=== PATIENT | male | born 1975 | race Asian ===

== ENCOUNTER 2017-12-17 07:25 | Day surgery (SDC) | payer OTHER ==
[~2017-12-17] VITALS: Ht 170.2 cm; Wt 89.8 kg
[2017-12-17 14:29] VITALS: BP_SYST 109
== END 2017-12-17 09:40 | disposition home or self-care (01) ==
LOC: SDS 07:25 → MERGE 08:00 → SDS 09:40
PROVIDERS: ATTEND Surgery
DX: K60.5 Anorectal fistula (principal); K60.2 Anal fissure, unspecified; J45.909 Unspecified asthma, uncomplicated; E03.9 Hypothyroidism, unspecified
CPT/HCPCS: 45331; 88305; J2250; J3010

== ENCOUNTER 2018-03-12 11:10 | Day surgery (SDC) | payer OTHER ==
[~2018-03-12] VITALS: Ht 170.2 cm; Wt 91.2 kg
[~2018-03-12 11:10] MED LIST: CEFAZOLIN SOD 1 GM in D5W 50 ML IV ONE
[2018-03-12] MEDS ORDERED: ONDANSETRON HCL 4 MG/2 ML VIAL IVP PRN (13:30)
[2018-03-12] MEDS ORDERED: MORPHINE 4 MG/ML INJ. SYRINGE IVP PRN ×2 (13:30→14:00)
[2018-03-12] MEDS ORDERED: ACETAMINOPHEN/CODEINE 300 MG-30 MG TABLET PO PRN ×2 (13:30)
[2018-03-12] MEDS ORDERED: LR 1,000 ML IV SCH (13:59)
[2018-03-12] MEDS ORDERED: MORPHINE 2 MG/ML INJ. SYRINGE IVP PRN (14:00)
[2018-03-12] MEDS ORDERED: MORPHINE SULFATE 10 MG/ML VIAL IVP PRN (14:00)
[2018-03-12] MEDS ORDERED: MEPERIDINE HCL/PF 25 MG/ML DISP.SYRIN IVP PRN (14:00)
[2018-03-12] MEDS ORDERED: EPINEPHrine 1 MG/ML AMP IV ONE (14:20)
[2018-03-12] MEDS ORDERED: ROCURONIUM BROMIDE 10 MG/ML (ZEMURON) IV ONE (14:20)
[2018-03-12] MEDS ORDERED: MIDAZOLAM HCL 5 MG/ML VIAL (VERSED) IV ONE (14:20)
[2018-03-12] MEDS ORDERED: DEXAMETHASONE SOD PHOSPHATE 4 MG/ML VIAL IVP ONE (14:20)
[2018-03-12] MEDS ORDERED: SEVOFLURANE 15 MIN GAS INH ONE (14:20)
[2018-03-12] MEDS ORDERED: LR 1,000 ML IV.SOLN IV ONE (14:20)
[2018-03-12] MEDS ORDERED: ONDANSETRON HCL 4 MG/2 ML VIAL IVP ONE ×2 (14:20→16:20)
[2018-03-12] MEDS ORDERED: PROPOFOL 200MG/ 20ML VIAL (DIPRIVAN) IV ONE (14:20)
[2018-03-12] MEDS ORDERED: KETOROLAC TROMETHAMINE 30 MG VIAL IVP ONE (14:20)
[2018-03-12] MEDS ORDERED: SUCCINYLCHOLINE CHLORIDE 20 MG/ML(QUELICIN) IVP ONE (14:20)
[2018-03-12] MEDS ORDERED: fentaNYL CITRATE 250 MCG/5 ML AMP IV ONE (14:20)
[2018-03-12] MEDS ORDERED: BUPIVACAINE /PF 0.25% 30 ML VIAL INJ ONE (14:20)
[2018-03-12] MEDS ORDERED: NS IRRIG SOLN 1000 ML IR ONE (14:20)
[2018-03-12 15:59] VITALS: BP_SYST 115
[2018-03-12] MEDS ORDERED: ONDANSETRON HCL 4 MG/2 ML VIAL ONE ×2 (16:17→16:22)
== END 2018-03-12 17:53 | disposition home or self-care (01) ==
LOC: SDS 11:10 → SMU 11:10 → SDS 17:53
PROVIDERS: ATTEND Surgery
DX: K60.3 Anal fistula (principal); K64.8 Other hemorrhoids; E66.9 Obesity, unspecified; J45.909 Unspecified asthma, uncomplicated; Z88.8 Allergy status to other drugs, medicaments and biological substances; Z98.890 Other specified postprocedural states; E03.9 Hypothyroidism, unspecified
CPT/HCPCS: 46270; 46945; 88304; 93005; J0171; J0330; J0690; J1100; J1885; J2250; J2405; J2704; J3010; J3490; J7060; J7120

== ENCOUNTER 2020-11-15 09:55 | Outpatient (CLI) | payer OTHER ==
[2020-11-15 11:03] LABS: BASOPHILS % (AUTO) 0.5 % (0.0-2.0); EOSINOPHILS # (AUTO) 0.2 K/uL (0.0-0.4); EOSINOPHILS % (AUTO) 2.7 % (0.0-4.0); HEMATOCRIT 48.1 % (36-54); HEMOGLOBIN 15.8 g/dL (14.0-18.0); LYMPHOCYTES # (AUTO) 1.9 K/uL (1.0-5.5); MEAN CORPUSCULAR HEMOGLOBIN 28 pg (27-31); MEAN CORPUSCULAR HGB CONC 33 % (32-36); MEAN CORPUSCULAR VOLUME 85 fL (79.0-98.0); MONOCYTES # (AUTO) 0.5 K/uL (0.0-1.0); MONOCYTES % (AUTO) 7.8 % (1.7-9.3); NEUTROPHILS # (AUTO) 3.5 K/uL (1.8-7.7); PLATELET COUNT (AUTO) 227 K/uL (130-430); RED BLOOD CELL COUNT(AUTO) 5.64 MIL/uL (4.2-6.2); RED CELL DISTRIBUTION WIDTH 15.3 % (9.0-15.0)
[2020-11-15 11:22] LABS: BILIRUBIN,URINE NEGATIVE (NEGATIVE); BLOOD, URINE 1+ (NEGATIVE); COLOR,URINE YELLOW (YELLOW); GLUCOSE,URINE NEGATIVE (NEGATIVE); KETONES,URINE NEGATIVE (NEGATIVE); LEUKOCYTE ESTERASE ,URINE NEGATIVE (NEGATIVE); NITRITE, URINE NEGATIVE (NEGATIVE); PH,URINE 5.5 (5.0-8.0); PROTEIN URINE NEGATIVE (NEGATIVE); UROBILINOGEN,URINE 0.2 (0.2-1.0)
[2020-11-15 11:26] LABS: CLARITY/URINE SLIGHTLY HAZY (CLEAR)
[2020-11-15 11:30] LABS: BACTERIA,URINE RARE /HPF (None Seen); MUCUS,URINE 1+ /LPF (None Seen); RBC,URINE 0-3 /HPF (0-3); WBC,URINE NONE SEEN /HPF (0-3)
[2020-11-15 11:32] LABS: CALCIUM 8.9 mg/dL (8.4-11.0); CREATININE 1.29 mg/dL (0.55-1.30); POTASSIUM 4.5 mmol/L (3.5-5.1); TOTAL BILIRUBIN 0.6 mg/dL (0.0-1.0); URIC ACID 8.1 mg/dL (2.4-7.0)
[2020-11-15 11:33] LABS: PHOSPHORUS 3.1 mg/dL (2.7-4.5)
[2020-11-17 13:07] LABS: CREATININE, URINE 124.3 mg/dL; MICROALBUMIN URINE RANDOM 4.2 ug/ml (NOT ESTABLISHED)
== END 2020-11-15 20:18 | disposition home or self-care (01) ==
LOC: SUS 09:55
DX: N28.1 Cyst of kidney, acquired (principal); N26.1 Atrophy of kidney (terminal); N20.0 Calculus of kidney; K27.9 Peptic ulcer, site unspecified, unspecified as acute or chronic, without hemorrhage or perforation; R31.9 Hematuria, unspecified; E03.9 Hypothyroidism, unspecified
CPT/HCPCS: 36415; 76770; 80053; 81000-TC; 82043; 82306; 82570; 83970; 84100-TC; 84156; 84550-TC; 85025

== ENCOUNTER 2020-12-15 10:12 | Outpatient (CLI) | payer OTHER ==
[2020-12-15 11:39] LABS: BASOPHILS % (AUTO) 0.5 % (0.0-2.0); EOSINOPHILS # (AUTO) 0.2 K/uL (0.0-0.4); EOSINOPHILS % (AUTO) 3.3 % (0.0-4.0); HEMATOCRIT 49.7 % (36-54); HEMOGLOBIN 16.3 g/dL (14.0-18.0); LYMPHOCYTES # (AUTO) 1.7 K/uL (1.0-5.5); LYMPHOCYTES % (AUTO) 30.2 % (20.5-51.5); MEAN CORPUSCULAR HEMOGLOBIN 28 pg (27-31); MEAN CORPUSCULAR HGB CONC 33 % (32-36); MEAN CORPUSCULAR VOLUME 85 fL (79.0-98.0); MONOCYTES # (AUTO) 0.4 K/uL (0.0-1.0); MONOCYTES % (AUTO) 7.3 % (1.7-9.3); NEUTROPHILS # (AUTO) 3.2 K/uL (1.8-7.7); NEUTROPHILS % (AUTO) 58.7 % (40.0-70.0); PLATELET COUNT (AUTO) 254 K/uL (130-430); RED BLOOD CELL COUNT(AUTO) 5.82 MIL/uL (4.2-6.2); WHITE BLOOD COUNT (AUTO) 5.5 K/uL (4.8-10.8)
[2020-12-15 11:40] LABS: BILIRUBIN,URINE NEGATIVE (NEGATIVE); CLARITY/URINE CLEAR (CLEAR); COLOR,URINE YELLOW (YELLOW); GLUCOSE,URINE NEGATIVE (NEGATIVE); KETONES,URINE NEGATIVE (NEGATIVE); LEUKOCYTE ESTERASE ,URINE NEGATIVE (NEGATIVE); NITRITE, URINE NEGATIVE (NEGATIVE); PH,URINE 6.5 (5.0-8.0); PROTEIN URINE NEGATIVE (NEGATIVE); UROBILINOGEN,URINE 0.2 (0.2-1.0)
[2020-12-15 11:47] LABS: BLOOD, URINE TRACE (NEGATIVE)
[2020-12-15 12:27] LABS: CALCIUM 8.9 mg/dL (8.4-11.0); CREATININE 1.19 mg/dL (0.55-1.30); FREE T4 (FREE THYROXINE) 0.7 ng/dl (0.8-1.5); POTASSIUM 4.7 mmol/L (3.5-5.1); THYROID STIMULATING HORMONE 2.05 uIu/mL (0.36-3.74); TOTAL BILIRUBIN 0.4 mg/dL (0.0-1.0)
[2020-12-16 05:07] LABS: HEPATITIS B SURFACE AG Negative (Negative); HEPATITIS C VIRUS AB <0.1 s/co ratio (0.0-0.9)
[2020-12-16 08:06] LABS: AFP, TUMOR MARKER 2.2 ng/mL (0.0-8.3); HEMOGLOBIN A1C 5.6 % (4.8-5.6)
== END 2020-12-15 20:54 | disposition home or self-care (01) ==
LOC: SUS 10:12
DX: Z00.01 Encounter for general adult medical examination with abnormal findings (principal); Z11.3 Encounter for screening for infections with a predominantly sexual mode of transmission; N28.1 Cyst of kidney, acquired; K76.0 Fatty (change of) liver, not elsewhere classified; E03.9 Hypothyroidism, unspecified; N18.9 Chronic kidney disease, unspecified; D45 Polycythemia vera
CPT/HCPCS: 36415; 76700-TC; 80053; 80061; 81000-TC; 81003; 82105; 82306; 82668; 83036; 84439; 84443-TC; 85025; 86592; 86706; 86803; 87340; 87491; 87591

== ENCOUNTER 2022-02-12 10:53 | Outpatient (CLI) | payer OTHER | END 2022-02-12 21:13 | disposition home or self-care (01) | LOC: SCA 10:53 | PROVIDERS: ATTEND Internal Medicine | DX: I07.1 Rheumatic tricuspid insufficiency (principal); R94.31 Abnormal electrocardiogram [ECG] [EKG]; R06.02 Shortness of breath; R06.09 Other forms of dyspnea | CPT/HCPCS: 71046-TC; 93306 ==

== ENCOUNTER 2022-06-17 12:31 | Outpatient (CLI) | payer OTHER ==
[2022-06-17 13:36] LABS: BASOPHILS % (AUTO) 0.6 % (0.0-2.0); EOSINOPHILS # (AUTO) 0.4 K/uL (0.0-0.4); EOSINOPHILS % (AUTO) 5.2 % (0.0-4.0); HEMATOCRIT 47.8 % (36-54); LYMPHOCYTES # (AUTO) 2.4 K/uL (1.0-5.5); LYMPHOCYTES % (AUTO) 35.1 % (20.5-51.5); MEAN CORPUSCULAR VOLUME 83 fL (79.0-98.0); MONOCYTES # (AUTO) 0.6 K/uL (0.0-1.0); MONOCYTES % (AUTO) 8.2 % (1.7-9.3); NEUTROPHILS # (AUTO) 3.5 K/uL (1.8-7.7); NEUTROPHILS % (AUTO) 50.9 % (40.0-70.0); PLATELET COUNT (AUTO) 272 K/uL (130-430); RED BLOOD CELL COUNT(AUTO) 5.79 MIL/uL (4.2-6.2); RED CELL DISTRIBUTION WIDTH 15.1 % (9.0-15.0); WHITE BLOOD COUNT (AUTO) 6.9 K/uL (4.8-10.8)
[2022-06-17 13:37] LABS: CALCIUM 9.2 mg/dL (8.4-11.0); CREATININE 1.3 mg/dL (0.55-1.30); POTASSIUM 4.5 mmol/L (3.5-5.1)
== END 2022-06-17 19:03 | disposition home or self-care (01) ==
LOC: SLB 12:31
PROVIDERS: ATTEND Surgery
DX: R10.9 Unspecified abdominal pain (principal)
CPT/HCPCS: 36415; 80048; 83036; 85025

== ENCOUNTER 2022-06-19 10:26 | Outpatient (CLI) | payer OTHER | END 2022-06-19 20:13 | disposition home or self-care (01) | LOC: SUS 10:26 | PROVIDERS: ATTEND Surgery | DX: R10.9 Unspecified abdominal pain (principal) | CPT/HCPCS: 76700-TC ==

== ENCOUNTER 2023-03-06 15:11 | Emergency (ER) | payer OTHER ==
[~2023-03-06] VITALS: Ht 170.2 cm; Wt 91.6 kg
[2023-03-06 15:14] VITALS: BP_SYST 122; BP_SYST 168
[2023-03-06] MEDS ORDERED: ALBUTEROL SULFATE 0.083% 2.5 MG/3 ML VIAL.NEB INH ONE (15:45)
[2023-03-06 16:00] LABS: BASOPHILS # (AUTO) 0.1 K/uL (0.0-0.2); BASOPHILS % (AUTO) 0.7 % (0.0-2.0); EOSINOPHILS # (AUTO) 0.3 K/uL (0.0-0.4); HEMATOCRIT 45.2 % (36-54); HEMOGLOBIN 14.9 g/dL (14.0-18.0); LYMPHOCYTES # (AUTO) 2.1 K/uL (1.0-5.5); LYMPHOCYTES % (AUTO) 26.9 % (20.5-51.5); MEAN CORPUSCULAR HEMOGLOBIN 28 pg (27-31); MEAN CORPUSCULAR HGB CONC 33 % (32-36); MEAN CORPUSCULAR VOLUME 83 fL (79.0-98.0); MONOCYTES # (AUTO) 0.8 K/uL (0.0-1.0); MONOCYTES % (AUTO) 9.6 % (1.7-9.3); NEUTROPHILS # (AUTO) 4.7 K/uL (1.8-7.7); NEUTROPHILS % (AUTO) 58.8 % (40.0-70.0); PLATELET COUNT (AUTO) 294 K/uL (130-430); RED BLOOD CELL COUNT(AUTO) 5.42 MIL/uL (4.2-6.2); RED CELL DISTRIBUTION WIDTH 15.8 % (9.0-15.0)
[2023-03-06 16:10] LABS: BILIRUBIN,URINE NEGATIVE (NEGATIVE); CLARITY/URINE CLEAR (CLEAR); COLOR,URINE YELLOW (YELLOW); GLUCOSE,URINE NEGATIVE (NEGATIVE); KETONES,URINE NEGATIVE (NEGATIVE); LEUKOCYTE ESTERASE ,URINE NEGATIVE (NEGATIVE); NITRITE, URINE NEGATIVE (NEGATIVE); PROTEIN URINE NEGATIVE (NEGATIVE); UROBILINOGEN,URINE 0.2 (0.2-1.0)
[2023-03-06 16:13] LABS: BLOOD, URINE TRACE (NEGATIVE)
[2023-03-06 16:16] LABS: ANION GAP 7 (5-15); CALCIUM 8.7 mg/dL (8.4-11.0); CHLORIDE 102 mmol/L (98-107); GFR AFRICAN AMERICAN 84 mL/min (>90); GLUCOSE 100 mg/dL (70-99); UREA NITROGEN, BLOOD 12 mg/dL (8-21)
[2023-03-06 16:21] LABS: BACTERIA,URINE None Seen /HPF (None Seen); RBC,URINE 0-3 /HPF (0-3); WBC,URINE 0-3 /HPF (0-3)
[2023-03-06 16:23] LABS: ALANINE AMINOTRANSFERASE 26 U/L (12-78); ALBUMIN 3.6 g/dL (3.4-4.8); ASPARTATE AMINOTRANSFERASE 19 U/L (10-37); TOTAL BILIRUBIN 0.4 mg/dL (0.0-1.0)
[2023-03-06] MEDS ORDERED: IBUP-1969 PO (16:52)
[2023-03-06] MEDS ORDERED: INHA1EAC52 MC (16:52)
[2023-03-06] MEDS ORDERED: GUAI1TBM19 PO (16:52)
[2023-03-06] MEDS ORDERED: ALBMDI INH (16:52)
[2023-03-06 17:56] VITALS: BP_SYST 124
== END 2023-03-06 16:30 | disposition home or self-care (01) ==
LOC: SED 15:11
DX: J20.9 Acute bronchitis, unspecified (principal); R06.02 Shortness of breath; R05.9 Cough, unspecified; R07.9 Chest pain, unspecified; Z91.041 Radiographic dye allergy status; Z79.899 Other long term (current) drug therapy
CPT/HCPCS: 80053; 81000; 83880; 85025; 84484; 36415; 93005; 71045; 94640; 99285; J7613

== ENCOUNTER 2024-07-27 19:33 | Emergency (ER) | payer OTHER ==
[~2024-07-27] VITALS: Ht 170.2 cm; Wt 91.6 kg
[~2024-07-27 19:33] MED LIST changes: +ALBMDI INH; -CEFAZOLIN SOD 1 GM in D5W 50 ML IV ONE; +GUAI1TBM19 PO; +IBUP-1969 PO; +INHA1EAC52 MC
[2024-07-27 19:39] VITALS: BP_SYST 117; PULSE 84; RESP 16; TEMP 96.2; O2SAT 96
[2024-07-27] MEDS: MORPHINE 4 MG INJ. 4 MG/ML VIAL IM ONE (20:14)
[2024-07-27] MEDS ORDERED: COLC0.6T67 PO (20:28)
[2024-07-27] MEDS ORDERED: TRAM50TA2 PO (20:28)
[2024-07-27] MEDS ORDERED: ALLO300T2 PO (20:28)
[2024-07-27 20:54] LABS: HEMOGLOBIN 15.4 g/dL (14.0-18.0); LYMPHOCYTES # (AUTO) 1.9 K/uL (1.0-5.5); LYMPHOCYTES % (AUTO) 23.9 % (20.5-51.5); RED CELL DISTRIBUTION WIDTH 15.6 % (9.0-15.0)
[2024-07-27 21:06] LABS: BASOPHILS % (AUTO) 0.2 % (0.0-2.0); CALCIUM 8.6 mg/dL (8.4-11.0); CREATININE 1.28 mg/dL (0.55-1.30); EOSINOPHILS # (AUTO) 0.3 K/uL (0.0-0.4); EOSINOPHILS % (AUTO) 4.3 % (0.0-4.0); HEMATOCRIT 45.9 % (36-54); MEAN CORPUSCULAR HEMOGLOBIN 28 pg (27-31); MEAN CORPUSCULAR HGB CONC 34 % (32-36); MEAN CORPUSCULAR VOLUME 83 fL (79.0-98.0); MONOCYTES # (AUTO) 0.8 K/uL (0.0-1.0); MONOCYTES % (AUTO) 9.4 % (1.7-9.3); NEUTROPHILS % (AUTO) 62.2 % (40.0-70.0); PLATELET COUNT (AUTO) 292 K/uL (130-430); POTASSIUM 4.3 mmol/L (3.5-5.1); RED BLOOD CELL COUNT(AUTO) 5.52 MIL/uL (4.2-6.2); URIC ACID 7.6 mg/dL (2.4-7.0)
[2024-07-27 21:32] VITALS: BP_SYST 117; PULSE 84; RESP 16; TEMP 96.2; O2SAT 96
== END 2024-07-27 21:32 | disposition home or self-care (01) ==
LOC: SED 19:33
DX: M10.9 Gout, unspecified (principal); Z91.041 Radiographic dye allergy status; Z79.899 Other long term (current) drug therapy
CPT/HCPCS: 99284; 80048; 84550; 85025; 36415; 73660; 96372; J2270